=== PATIENT | female | born 1960 | race Caucasian/White ===

== ENCOUNTER 2021-02-09 09:02 | Emergency (ER) | payer MEDICAID ==
[~2021-02-09] VITALS: Ht 160 cm; Wt 101.7 kg
[~2021-02-09 09:02] MED LIST: GLU500 PO; HYDR25TA32; LISI10TA30; SIMV-30
--- NOTE | 2021-02-09 09:11 | NUR ---
TO ER BED 3
[2021-02-09 09:24] VITALS: BP 187/98
--- NOTE | 2021-02-09 09:29 | NUR ---
60 Y FEMALE WITH C/O OF BACK AND LEG PAIN FOR THE PAST 2 WEEKS. PT STATED THE PAIN IS FELT ACROSS HER ENTIRE BACK, BUT IS WORSE ON HER R SIDE AND RADIATES DOWN HER R LEG. PT ALSO STATED SHE HAS STARTED TO EXPERINCE A FORREST X3 DAYS AGO. PT IS ABLE TO AMBULATE BUT CAUSES PAIN. UPON ASSESSMENT PT DENIES ANY SOB/CHEST PAIN. PT ALSO STATED SHE HAS HAD SOME N/V, BUT BELIEVES ITS FROM THE IBUPROFEN. PMH: HTN, DM, HDL, GOUT HOME MEDS: IBUPROFEN - PROVIDED LITTLE RELIEF NKA
--- NOTE | 2021-02-09 10:26 | NUR ---
DR. PACHECO BEDSIDE EVALUATING PT
[2021-02-09] MEDS ORDERED: KETOROLAC 30 MG/ML VIAL IM ONE (10:30)
[2021-02-09] MEDS ORDERED: DEXAMETHASONE 10 MG/ML VIAL IM ONE (10:30)
[2021-02-09] MEDS ORDERED: LIDOCAINE 5% 1 EA PATCH TP STA (10:32)
--- NOTE | 2021-02-09 10:51 | NUR ---
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
[2021-02-09] MEDS ORDERED: LIDO5CRE19 TP (11:33)
--- NOTE | 2021-02-09 11:40 | NUR ---
Patient discharged with v/s stable. Written and verbal after care instructions given and explained. Patient alert, oriented and verbalized understanding of instructions. Ambulatory with steady gait. All questions addressed prior to discharge. ID band removed. Patient advised to follow up with PMD. Rx of LIDOCAINE given. Patient educated on indication of medication including possible reaction and side effects. Opportunity to ask questions provided and answered.
[2021-02-09 11:44] VITALS: BP 169/90
== END 2021-02-09 11:40 | disposition home or self-care (01) ==
LOC: MED 09:02
DX: G89.29 Other chronic pain (principal); M54.5 Low back pain; I11.9 Hypertensive heart disease without heart failure; E11.9 Type 2 diabetes mellitus without complications; E78.00 Pure hypercholesterolemia, unspecified
CPT/HCPCS: 81002; 81025; 96372; 99284; J1100; J1885